=== PATIENT | male | born 2000 | race Caucasian/White ===

== ENCOUNTER 2023-04-30 18:53 | Emergency (ER) | payer OTHER, SELFPAY ==
[2023-04-30 19:29] VITALS: BP 167/98; PULSE 83; RESP 20; TEMP 36.9; O2SAT 98; BMI 26.0
[2023-04-30 19:57] LABS: Basophils # 0.1 10^3/uL (0.0-0.1); Basophils % 0.5 %; Eosinophils # 0.3 10^3/uL (0.0-0.8); Eosinophils % 2.7 %; Hematocrit 45.8 % (42.0-52.0); Hemoglobin 15.8 g/dL (11.7-16.6); Lymphocytes # 2.5 10^3/uL (1.5-6.5); Mean Corpuscular HGB Conc 34.5 g/dL (30.0-36.0); Mean Corpuscular Hemoglobin 31.2 pg (28.0-34.0); Mean Corpuscular Volume 90.3 fl (80-94); Mean Platelet Volume 9.7 fL (7.4-10.4); Monocytes # 0.7 10^3/uL (0.2-0.9); Monocytes % 7.6 %; Neutrophils # 5.69 10^3/uL (1.8-8.0); Neutrophils % 61.9 %; Nucleated Red Blood Cells % 0 %; Platelet Count 191 10^3/cmm (130-400); Red Blood Count 5.07 10^6/uL (4.1-5.3); Red Cell Distribution Width 11.5 % (12.1-15.1); White Blood Count 9.2 10^3/uL (4.5-13.0)
[2023-04-30 20:20] LABS: Alanine Aminotransferase 29 U/L (0-41); Albumin Level 4.7 g/dL (3.5-5.2); Alkaline Phosphatase 77 U/L (40-130); Anion Gap 14.3 (5-19); Aspartate Amino Transferase 21 U/L (0-40); Blood Urea Nitrogen 11 mg/dL (6-20); Calcium 9.6 mg/dL (8.5-10.5); Carbon Dioxide 28 mmol/L (22-29); Chloride 100 mmol/L (98-107); Creatinine Clr Calc Pharmacy 150.7333; Globulin 2.7 g/dL (1.3-4.6); Glomerular Filtration Rate 107.6 mL/min (90-130); Glucose 90 mg/dL (65-115); Lipase 28 U/L (13-60); Osmolality Calculated 285 mOsm/kg (285-295); Potassium 4.3 mmol/L (3.5-5.1); Sodium 138 mmol/L (136-145); Total Bilirubin 0.3 mg/dL (0.15-1.2); Total Protein 7.4 g/dL (6.6-8.7)
--- NOTE | 2023-04-30 21:35 | CTR_ITS ---
PROCEDURE INFORMATION: Exam: CT Abdomen And Pelvis With Contrast Exam date and time: 04/30/2023 10:21 PM Age: 22 years old Clinical indication: Abdominal pain; Localized; Right; Patient HX: RT sided/flank pain x 2 days; Additional info: Abd pain TECHNIQUE: Imaging protocol: Computed tomography of the abdomen and pelvis with contrast. Radiation optimization: All CT scans at this facility use at least one of these dose optimization techniques: automated exposure control; mA and/or kV adjustment per patient size (includes targeted exams where dose is matched to clinical indication); or iterative reconstruction. Contrast material: OMNI 350; Contrast volume: 100 ml; Contrast route: INTRAVENOUS (IV); REPORTING DATA: Count of CT and Cardiac NM exams in prior 12 months: This patient has received 0 known CTs and 0 known cardiac nuclear medicine studies in the 12 months prior to the current study. COMPARISON: No relevant prior studies available. RADIATION DOSE METRICS: Total DLP (mGy-cm): 530.93 FINDINGS: Liver: Normal. No mass. Gallbladder and bile ducts: Normal. No calcified stones. No ductal dilation. Pancreas: Normal. No ductal dilation. Spleen: Normal. No splenomegaly. Adrenal glands: Normal. No mass. Kidneys and ureters: Normal. No hydronephrosis. Stomach and bowel: Unremarkable. No obstruction. No mucosal thickening. Appendix: No evidence of appendicitis. Intraperitoneal space: Unremarkable. No free air. No significant fluid collection. Vasculature: Unremarkable. No abdominal aortic aneurysm. Lymph nodes: Unremarkable. No enlarged lymph nodes. Urinary bladder: Unremarkable as visualized. Reproductive: Unremarkable as visualized. Bones/joints: Unremarkable. No acute fracture. Soft tissues: Unremarkable. CT/CT abdomen pelvis w con* [id number] IMPRESSION: No acute findings.
--- NOTE | 2023-04-30 21:38 | ED_ITS ---
HPI - Abdominal Pain General: Chief Complaint: Abdominal Pain Stated Complaint: abd pain Time Seen by Provider: 04/30/23 21:14 Source: patient Mode of arrival: ambulatory Limitations: no limitations History of Present Illness: 22-year-old male states been having right lower quadrant pain throughout the day states it is worse with movement and touch. He states the pain is sharp in nature he rates it a 6 out of 10 currently denies any vomiting or diarrhea denies any fevers. Associated Symptoms: Denies chills, diarrhea, dysuria, fever(s), nausea and vomiting Review of Systems Const: Denies: fever(s) or chills ENMT: Denies: throat pain or dental pain Card: Denies: chest pain Resp: Denies: dyspnea GI: Reports: abdominal pain; Denies: nausea, vomiting or diarrhea : Denies: dysuria Musc: Denies: neck pain or back pain Skin/Breast: Denies: rash Neuro: Denies: headache(s) Physical Exam Const: COMMON NORMALS: no acute distress, patient oriented x3 and healthy appearing HENMT: COMMON NORMALS: normocephalic and atraumatic HEAD & SCALP: normocephalic and atraumatic Neck/C-Spine: COMMON NORMALS: full ROM and supple Chest: COMMONS NORMALS: normal inspection of the chest Resp: COMMON NORMALS: normal respiratory effort Cardio: COMMON NORMALS: regular rate, regular rhythm and No murmurs present (Cardio) RATE: regular rate RHYTHM: regular rhythm GI: COMMON NORMALS: Normal to inspection, nondistended, normoactive bowel sounds present, Soft to palpation and no masses PALPATION: Yes Soft to palpation and Yes Tenderness to palpation present (GI) Details: RLQ Extremity: COMMON NORMALS: normal to inspection and full ROM Neuro: COMMON NORMALS: patient oriented x3, moves all extremities and no focal motor deficits Psych: COMMON NORMALS: mental status grossly normal, Normal thought process present and cooperative THOUGHT PROCESS: Normal thought process present Skin: COMMON NORMALS: no rashes or lesions noted and no wounds GENERAL SKIN EXAM: no rashes or lesions noted Course Vital Signs: Vital signs: Vital Signs Temperature 98.4 F 04/30/23 19:29 Pulse Rate 67 04/30/23 22:13 Respiratory Rate 18 04/30/23 22:07 Blood Pressure 123/59 04/30/23 22:13 Pulse Oximetry 100 04/30/23 22:13 Oxygen Delivery Me thod Room Air 04/30/23 22:13 MDM - Abdominal Pain Medical Decision Making Patient presents with abdominal pain is likely muscular in origin patient's blood work and CT scan here shows no acute abnormality he is stable for discharge we will place him on Naprosyn he is to follow-up with PCP and return if worsening. Lab Data 04/30/23 19:46 04/30/23 19:46 Labs/Radiology: Radiology Impressions Abdomen/Pelvis CT 04/30/23 21:35 IMPRESSION: No acute findings. Laboratory Results WBC 9.2 10^3/uL (4.5-13.0) 04/30/23 19:46 RBC 5.07 10^6/uL (4.1-5.3) 04/30/23 19:46 Hgb 15.8 g/dL (11.7-16.6) 04/30/23 19:46 Hct 45.8 % (42.0-52.0) 04/30/23 19:46 MCV 90.3 fl (80-94) 04/30/23 19:46 MCH 31.2 pg (28.0-34.0) 04/30/23 19:46 MCHC 34.5 g/dL (30.0-36.0) 04/30/23 19:46 RDW 11.5 % (12.1-15.1) L 04/30/23 19:46 Plt Count 191 10^3/cmm (130-400) 04/30/23 19:46 MPV 9.7 fL (7.4-10.4) 04/30/23 19:46 Neut % (Auto) 61.9 % 04/30/23 19:46 Lymph % (Auto) 27.0 % 04/30/23 19:46 Whitman % (Auto) 7.6 % 04/30/23 19:46 Eos % (Auto) 2.7 % 04/30/23 19:46 Baso % (Auto) 0.5 % 04/30/23 19:46 Neut # (Auto) 5.69 10^3/uL (1.8-8.0) 04/30/23 19:46 Lymph # (Auto) 2.5 10^3/uL (1.5-6.5) 04/30/23 19:46 Whitman # (Auto) 0.7 10^3/uL (0.2-0.9) 04/30/23 19:46 Eos # (Auto) 0.3 10^3/uL (0.0-0.8) 04/30/23 19:46 Baso # (Auto) 0.1 10^3/uL (0.0-0.1) 04/30/23 19:46 Nucleated RBC % (auto) 0 % 04/30/23 19:46 Nucleated RBCs # 0.0 /100WBC 04/30/23 19:46 Sodium 138 mmol/L (136-145) 04/30/23 19:46 Potassium 4.3 mmol/L (3.5-5.1) 04/30/23 19:46 Chloride 100 mmol/L (98-107) 04/30/23 19:46 Carbon Dioxide 28 mmol/L (22-29) 04/30/23 19:46 Anion Gap 14.3 (5-19) 04/30/23 19:46 BUN 11 mg/dL (6-20) 04/30/23 19:46 Creatinine 0.9 mg/dL (0.7-1.2) 04/30/23 19:46 GFR Calculation 107.6 mL/min (90-130) 04/30/23 19:46 Glucose 90 mg/dL (65-115) 04/30/23 19:46 Calculated Osmolality 285 mOsm/kg (285-295) 04/30/23 19:46 Calcium 9.6 mg/dL (8.5-10.5) 04/30/23 19:46 Total Bilirubin 0.3 mg/dL (0.15-1.2) 04/30/23 19:46 AST 21 U/L (0-40) 04/30/23 19:46 ALT 29 U/L (0-41) 04/30/23 19:46 Alkaline Phosphatase 77 U/L (40-130) 04/30/23 19:46 Total Protein 7.4 g/dL (6.6-8.7) 04/30/23 19:46 Albumin 4.7 g/dL (3.5-5.2) 04/30/23 19:46 Globulin 2.7 g/dL (1.3-4.6) 04/30/23 19:46 Lipase 28 U/L (13-60) 04/30/23 19:46 Discharge Plan Discharge Patient Disposition: Home Clinical Impression: Abdominal pain Condition: Stable Prescriptions: New Naprosyn 500 mg tablet 500 mg PO BID PRN (Reason: pain) Qty: 20 0RF Discharge Orders: Discharge ED (Routine); Ordered 04/30/23 Ordered By: Tiffanie Luque Discharge Diet: Advance as tolerated Discharge Activity: Resume usual activity Patient Instructions: Abdominal Pain (ED) Coding Level of Care Code ED Ultrasound Technologist Sonographer for Ariela Umana
[2023-04-30 22:07] VITALS: RESP 18
[2023-04-30] MEDS: morphine 4 mg/mL SDV 1 mL IVP (22:07)
[2023-04-30] MEDS: ondansetron 2 mg/ML SDV 2 mL 4 MG IVP (22:07)
[2023-04-30 22:13] VITALS: BP 123/59; PULSE 67; O2SAT 100
[2023-04-30] MEDS: iohexol 350 mg/mL 500 mL Btl (per mL) IV (22:23)
[2023-04-30 23:02] VITALS: BP 135/78; PULSE 67; O2SAT 97
--- NOTE | 2023-05-01 12:50 | DCPLANNER ---
storage center manager called patient due to no primary care physician - no answer at this time.
--- NOTE | 2023-05-27 13:00 | DCPLANNER ---
managed care manager called patient due to no primary care physician - unable to speak with patient at this time, a voicemail was left for patient.
== END 2023-04-30 23:04 | disposition home or self-care (01) ==
PROVIDERS: Emergency Provider Emergency Medicine
DX: R10.31 Right lower quadrant pain (principal)
CPT/HCPCS: 36415; 74177; 80053; 83690; 85025; 96374; 96375; 99285; J2270; J2405; Q9967

== ENCOUNTER 2023-11-20 23:46 | Emergency (ER) | payer OTHER, SELFPAY ==
[2023-11-20 23:51] VITALS: BP 147/88; PULSE 63; RESP 16; TEMP 36.7; O2SAT 100; BMI 24.4
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
[2023-11-21 00:48] VITALS: BP 147/88; PULSE 63; RESP 16; TEMP 36.7; O2SAT 100
== END 2023-11-21 00:49 | disposition home or self-care (01) ==
PROVIDERS: Emergency Provider Physician Assistant
DX: S60.221A Contusion of right hand, initial encounter (principal); V89.2XXA Person injured in unspecified motor-vehicle accident, traffic, initial encounter; Y99.0 Civilian activity done for income or pay
CPT/HCPCS: 73130; 99283